=== PATIENT | male | born 1965 | race Caucasian/White ===

== ENCOUNTER 2024-03-20 20:39 | Emergency (ER) | payer OTHER, SELFPAY ==
[2024-03-20 20:48] VITALS: BP 123/80; PULSE 85; RESP 19; TEMP 36.4; O2SAT 99; BMI 32.3
[2024-03-21 04:43] VITALS: BP 112/84; PULSE 112; RESP 18; TEMP 36.8; O2SAT 96
[2024-03-21] MEDS: Diphth,Pertus(ACell),Tet Adult 0.5 ML SYRINGE IM (05:31)
[2024-03-21] MEDS: Lidocaine HCl 1 % MPF 5 ML VIAL INFILTRATI (05:32)
--- NOTE | 2024-03-21 05:35 | ED.WOUNDLAC ---
HPI - Wound/Laceration General Chief Complaint: Wound/Laceration Stated Complaint: Left hand laceration/syncope Time Seen by Provider: 03/21/24 04:49 Source: patient Mode of arrival: ambulatory Limitations: no limitations History of Present Illness ED Provider: HPI narrative: Patient comes here with laceration on the dorsum of the left hand when trying to remove the battery hit the [place] earlier in the deeper injuries Related Data Previous Rx's ?Medication ?Instructions ?Recorded cephalexin 500 mg capsule 500 mg PO QID 7 days #28 caps 03/21/24 Allergies Allergy/AdvReac Type Severity Reaction Status Date / Time crab AdvReac Hives Verified 03/20/24 20:52 Review of Systems Review of Systems: Yes all other systems are reviewed and are negative [facility] Social History Social History Alcohol intake: current Alcohol intake frequency: holidays/special occasions only Use of substances other than those prescribed or required for medical reasons: No Advance Directives: No Advance Directives Information Provided: Yes Do you have a plan to hurt others: No Plan Physical Exam Vital Signs: Vital Signs: Last Vital Signs Temp 98.3 F 03/21/24 05:45 Pulse 112 H 03/21/24 05:45 Resp 18 03/21/24 05:45 BP 112/84 03/21/24 05:45 Pulse Ox 96 03/21/24 05:45 O2 Del Method Room Air 03/21/24 05:45 BMI result Body Mass Index 32.3 Extrem: Hand/finger images: 1. 4 cm long superficial laceration neurovascular intact Medications Administered Discontinued Medications Generic Name Dose Route Start Last Admin Trade Name Freq PRN Reason Stop Dose Admin Bacitracin 1 appl 03/21/24 05:30 03/21/24 05:37 Bacitracin Oint 0.9 Gm Packet TOPICAL 03/21/24 05:31 1 appl ONCE ONE Administration Protocol Cephalexin HCl 500 mg 03/21/24 05:30 03/21/24 05:37 Cephalexin 500 Mg Capsule PO 03/21/24 05:31 500 mg ONCE ONE Administration Diphtheria/Tetanus/Acell Pertussis 0.5 ml 03/21/24 04:54 03/21/24 05:31 Diphth,Pertus(Acell),Tet Adult 0.5 Ml Syringe IM 03/21/24 04:55 0.5 ml .ONCE ONE Administration Lidocaine HCl 5 ml 03/21/24 04:49 03/21/24 05:32 Lidocaine Hcl 1 % Mpf 5 Ml Vial INFILTRATI 03/21/24 04:50 5 ml ONCE ONE Administration Procedures Laceration Laceration 1: Site: hand Side (If applicable): left Size (cm): 4 Description: linear Depth: simple, single layer Local Anesthetic: lidocaine 1% Amount of anesthesia used (mL): 4 Pre-repair: wound explored Skin layer closed with: vicryl Size (cm): 5-0 Number of sutures: 8 Technique: simple, interrupted Discharge Plan Discharge Clinical Impression: Laceration Patient Disposition: Home, Self-Care Instructions: Laceration (ED) Additional Instructions: Local care as advised Suture removal in 14 days Antibiotic as prescribed for 7 days Prescriptions: New cephalexin 500 mg capsule 500 mg PO QID 7 Days Qty: 28 0RF Interventions: ED Discharge Assessment Last Done: 03/21/24 05:45 Discharge Date/Time: 03/21/24 05:49 Print Language: Swedish
[2024-03-21] MEDS: Bacitracin Oint 0.9 GM PACKET 1 APPL TOPICAL (05:37)
[2024-03-21] MEDS: cephALEXin 500 MG CAPSULE PO (05:37)
[2024-03-21 05:45] VITALS: BP 112/84; PULSE 112; RESP 18; TEMP 36.8; O2SAT 96
== END 2024-03-21 05:49 | disposition home or self-care (01) ==
PROVIDERS: Emergency Provider Internal Medicine; PCP Internal Medicine
DX: S61.412A Laceration without foreign body of left hand, initial encounter (principal); W22.09XA Striking against other stationary object, initial encounter; Y93.89 Activity, other specified; Y92.9 Unspecified place or not applicable; Y99.9 Unspecified external cause status; Z23 Encounter for immunization
CPT/HCPCS: 12002; 90471; 90715; 99284; J2003